=== PATIENT | female | born 1960 | race Two or more races ===

== ENCOUNTER 2023-08-08 15:49 | Inpatient (IN) | payer OTHER ==
[~2023-08-08] VITALS: Ht 160 cm; Wt 63.5 kg
[2023-08-08] MEDS ORDERED: HYDROMORPHONE 1 MG/1 ML DISP.SYRIN ONE (16:16)
[2023-08-08] MEDS ORDERED: ONDANSETRON 4 MG/2 ML VIAL ONE (16:16)
[2023-08-08] MEDS: HYDROMORPHONE 1 MG/1 ML DISP.SYRIN IV ONE (16:22)
[2023-08-08] MEDS: ONDANSETRON 4 MG/2 ML VIAL IV ONE (16:22)
[2023-08-08 16:29] LABS: BASOPHILS % (AUTO) 0.8 % (0.0-2.0); DIFFERENTIAL COMMENT 0; EOSINOPHILS # (AUTO) 0.1 K/uL (0.0-0.7); EOSINOPHILS % (AUTO) 7.7 % (0.0-7.0); HEMATOCRIT 29.2 % (31.2-41.9); HEMOGLOBIN 9.8 g/dL (10.9-14.3); LYMPHOCYTES # (AUTO) 0.5 K/uL (0.8-4.8); LYMPHOCYTES % (AUTO) 35.8 % (20.5-51.5); MEAN CORPUSCULAR HEMOGLOBIN 28.6 uug (24.7-32.8); MEAN CORPUSCULAR HGB CONC 34 g/dL (32.3-35.6); MEAN CORPUSCULAR VOLUME 85.3 fL (75.5-95.3); MONOCYTES # (AUTO) 0.4 K/uL (0.1-1.30); MONOCYTES % (AUTO) 30.1 % (0.0-11.0); NEUTROPHILS # (AUTO) 0.4 K/uL (1.8-8.9); NEUTROPHILS % (AUTO) 25.6 % (38.5-71.5); PLATELET COUNT (AUTO) 354 K/uL (179-408); RED BLOOD CELL COUNT(AUTO) 3.42 MIL/uL (3.63-4.92); RED CELL DISTRIBUTION WIDTH 16.7 % (12.3-17.7)
[2023-08-08 17:00] LABS: WHITE BLOOD COUNT (AUTO) 1.5 K/uL (3.8-11.8)
[2023-08-08 17:02] LABS: CARBON DIOXIDE 29 mmol/L (21-32); CHLORIDE 100 mmol/L (98-107); CREATININE 1.3 mg/dL (0.6-1.3); GLUCOSE 143 mg/dL (74-106); POTASSIUM 3.8 mmol/L (3.5-5.1); SODIUM SERUM 138 mmol/L (136-145); UREA NITROGEN, BLOOD 7 mg/dL (7-18)
[2023-08-08 17:08] LABS: BASOPHILS % (MANUAL) 0 % (0-2); EOSINOPHILS % (MANUAL) 5 % (0-8); LYMPHOCYTES % (MANUAL) 30 % (20-40); MONOCYTES % (MANUAL) 35 % (2-10); NEUTROPHILS % (MANUAL) 30 % (42-75)
[2023-08-08 17:15] LABS: ALANINE AMINOTRANSFERASE 20 U/L (14-59); ALBUMIN 2.4 g/dL (3.4-5.0); ALKALINE PHOSPHATASE 128 U/L (50-136); ASPARTATE AMINOTRANSFERASE 12 U/L (15-37); BILIRUBIN,TOTAL 0.2 mg/dL (0.2-1.0); NT-PRO BNP 194 pg/mL (0-125); TOTAL PROTEIN, SERUM 7.3 g/dL (6.4-8.2)
[2023-08-08 17:16] LABS: BILIRUBIN,DIRECT < 0.1 mg/dL (0.0-0.2)
[2023-08-08] MEDS: IV NS 1000 ML 1,000 ML IV ONE (19:15)
[2023-08-08] MEDS ORDERED: GUAIFENESIN/DEXTROMETHORPHAN 5 ML UDC ONE (21:05)
[2023-08-08] MEDS: GUAIFENESIN/DEXTROMETHORPHAN 5 ML UDC PO ONE (21:06)
[2023-08-08] MEDS ORDERED: IV NORMAL SALINE 250 ML IV ONE (21:18)
[2023-08-08] MEDS ORDERED: SWABABLE VALVE TRANSFER SET EA MC ONE (21:18)
[2023-08-08] MEDS ORDERED: IOHEXOL 350 100 ML INFUS..BTL ONE (21:20)
[2023-08-08] MEDS ORDERED: ONDANSETRON 4 MG/2 ML VIAL IV PRN (21:30)
[2023-08-08] MEDS ORDERED: ALBUTEROL SULFATE 2.5 MG/ 0.5 ML NEBU ONE (21:42)
[2023-08-08 21:47] VITALS: O2SAT 98
[2023-08-08] MEDS: ALBUTEROL SULFATE 2.5 MG/ 0.5 ML NEBU NEB PRN (21:49)
[2023-08-08 22:02] VITALS: O2SAT 98
[2023-08-08] MEDS ORDERED: MELO-105 PO (22:15)
[2023-08-08] MEDS ORDERED: LOSA50TA39 PO (22:15)
[2023-08-08] MEDS ORDERED: APIX5TAB PO (22:15)
[2023-08-08] MEDS ORDERED: LOPE2TAB25 PO (22:15)
[2023-08-08] MEDS ORDERED: PROC-11 PO (22:15)
[2023-08-08] MEDS ORDERED: OXYC-128 PO (22:15)
[2023-08-08] MEDS ORDERED: LORA0.5T48 PO (22:15)
[2023-08-08] MEDS ORDERED: METO-356 PO (22:15)
[2023-08-08] MEDS ORDERED: POTA10CA43 PO (22:15)
[2023-08-08] MEDS ORDERED: FAMO40TA7 PO (22:15)
[2023-08-08] MEDS ORDERED: LEVO75TA7 PO (22:15)
[2023-08-08] MEDS ORDERED: HYDROCODONE/APAP 5-325MG TABLET ONE (22:29)
[2023-08-08] MEDS: HYDROCODONE/APAP 5-325MG TABLET PO PRN (22:30)
[2023-08-09 01:44] VITALS: BP 124/77; TEMP 98; O2SAT 94
[2023-08-09 04:55] VITALS: BP 129/80; TEMP 98.1; O2SAT 95
[2023-08-09 07:35] LABS: BASOPHILS % (AUTO) 0.7 % (0.0-2.0); EOSINOPHILS # (AUTO) 0.1 K/uL (0.0-0.7); EOSINOPHILS % (AUTO) 5.5 % (0.0-7.0); HEMATOCRIT 24.1 % (31.2-41.9); HEMOGLOBIN 8.2 g/dL (10.9-14.3); LYMPHOCYTES # (AUTO) 0.9 K/uL (0.8-4.8); MEAN CORPUSCULAR HEMOGLOBIN 28.8 uug (24.7-32.8); MEAN CORPUSCULAR HGB CONC 34 g/dL (32.3-35.6); MEAN CORPUSCULAR VOLUME 84.5 fL (75.5-95.3); MONOCYTES # (AUTO) 0.7 K/uL (0.1-1.30); MONOCYTES % (AUTO) 34.8 % (0.0-11.0); NEUTROPHILS # (AUTO) 0.3 K/uL (1.8-8.9); PLATELET COUNT (AUTO) 299 K/uL (179-408); RED BLOOD CELL COUNT(AUTO) 2.85 MIL/uL (3.63-4.92); RED CELL DISTRIBUTION WIDTH 16.7 % (12.3-17.7)
[2023-08-09 07:40] LABS: DIFFERENTIAL COMMENT 1
[2023-08-09 08:00] VITALS: BP 112/57; TEMP 97.6; O2SAT 97
[2023-08-09 08:07] LABS: THYROID STIMULATING HORMONE 4.014 mIU/mL (0.358-3.740)
[2023-08-09 08:13] LABS: ALBUMIN 1.9 g/dL (3.4-5.0); BILIRUBIN,TOTAL 0.2 mg/dL (0.2-1.0); CALCIUM 8.4 mg/dL (8.5-10.1); CREATININE 1.1 mg/dL (0.6-1.3); MAGNESIUM 1.8 mg/dL (1.8-2.4); PHOSPHOROUS 3.8 mg/dL (2.5-4.9); POTASSIUM 3.4 mmol/L (3.5-5.1); TOTAL PROTEIN, SERUM 6.1 g/dL (6.4-8.2)
[2023-08-09] MEDS: PANTOPRAZOLE SODIUM 40 MG TABLET.DR PO SCH (08:40)
[2023-08-09] MEDS ORDERED: LORAZEPAM 0.5 MG TABLET PO PRN (10:30)
[2023-08-09] MEDS: POTASSIUM CHLORIDE 10 MEQ TAB.PRT.SR PO SCH (11:28)
[2023-08-09] MEDS: METOPROLOL SUCCINATE XL 25 MG TAB.SR.24H PO SCH (11:28)
[2023-08-09] MEDS: LEVOTHYROXINE SODIUM 75 MCG TABLET PO SCH (11:28)
[2023-08-09] MEDS: FUROSEMIDE 40 MG/4 ML VIAL IV SCH (11:28)
[2023-08-09] MEDS: LIDOCAINE 5% PATCH TD SCH (11:40)
[2023-08-09 12:00] VITALS: BP 102/56; TEMP 97.8; O2SAT 97
[2023-08-09] MEDS: GUAIFENESIN/CODEINE 5 ML LIQUID UDC PO PRN (14:42)
[2023-08-09 16:00] VITALS: BP 116/78; TEMP 97.6; O2SAT 98
[2023-08-09 16:16] LABS: ANISOCYTOSIS 1+; EOSINOPHILS % (MANUAL) 3 % (0-8); LYMPHOCYTES % (MANUAL) 51 % (20-40); MONOCYTES % (MANUAL) 27 % (2-10); NEUTROPHILS % (MANUAL) 19 % (42-75); PLATELET ESTIMATE ADEQUATE
[2023-08-09 16:17] LABS: OVALOCYTES 1+
[2023-08-09] MEDS: APIXABAN 5 MG TABLET PO SCH (16:25)
[2023-08-09 20:00] VITALS: BP 127/86; TEMP 99.7; O2SAT 92
[2023-08-09] MEDS: DOCUSATE SODIUM 100 MG CAPSULE PO SCH (20:54)
[2023-08-09] MEDS: ACETAMINOPHEN 325 MG TABLET PO PRN (20:55)
[2023-08-10 07:37] LABS: BASOPHILS % (AUTO) 0.6 % (0.0-2.0); EOSINOPHILS # (AUTO) 0.1 K/uL (0.0-0.7); LYMPHOCYTES # (AUTO) 0.9 K/uL (0.8-4.8); LYMPHOCYTES % (AUTO) 35.9 % (20.5-51.5); MEAN CORPUSCULAR HGB CONC 35 g/dL (32.3-35.6); MEAN CORPUSCULAR VOLUME 83.7 fL (75.5-95.3); MONOCYTES # (AUTO) 0.9 K/uL (0.1-1.30); MONOCYTES % (AUTO) 33.9 % (0.0-11.0); NEUTROPHILS # (AUTO) 0.6 K/uL (1.8-8.9); NEUTROPHILS % (AUTO) 24.6 % (38.5-71.5); PLATELET COUNT (AUTO) 420 K/uL (179-408); RED BLOOD CELL COUNT(AUTO) 3.11 MIL/uL (3.63-4.92); RED CELL DISTRIBUTION WIDTH 17.2 % (12.3-17.7); WHITE BLOOD COUNT (AUTO) 2.5 K/uL (3.8-11.8)
[2023-08-10 07:57] LABS: DIFFERENTIAL COMMENT 1
[2023-08-10 08:12] VITALS: BP 139/81; TEMP 99; O2SAT 91
[2023-08-10 08:22] LABS: CREATININE 1.2 mg/dL (0.6-1.3); MAGNESIUM 1.8 mg/dL (1.8-2.4); POTASSIUM 3.1 mmol/L (3.5-5.1)
[2023-08-10 08:30] LABS: CALCIUM 8.6 mg/dL (8.5-10.1); PHOSPHOROUS 4.4 mg/dL (2.5-4.9)
[2023-08-10] MEDS ORDERED: LOSARTAN POTASSIUM 50 MG TABLET PO SCH (09:00)
[2023-08-10] MEDS ORDERED: POTASSIUM CHLORIDE 20 MEQ TAB.PRT.SR PO ONE (12:00)
[2023-08-10 13:41] LABS: EOSINOPHILS % (MANUAL) 2 % (0-8); LYMPHOCYTES % (MANUAL) 44 % (20-40); MONOCYTES % (MANUAL) 27 % (2-10); NEUTROPHILS % (MANUAL) 27 % (42-75); PLATELET ESTIMATE INCREASED
[2023-08-10 13:42] LABS: ANISOCYTOSIS 1+; HYPOCHROMASIA 1+
[2023-08-10 13:43] LABS: OVALOCYTES 1+
== END 2023-08-10 12:10 | disposition home or self-care (01) | DRG 291 ==
LOC: ER 15:50 → TELE3 18:00
PROVIDERS: ADMIT Internal Medicine; ATTEND Internal Medicine
DX: I11.0 Hypertensive heart disease with heart failure (principal); E43 Unspecified severe protein-calorie malnutrition; I50.31 Acute diastolic (congestive) heart failure; N17.0 Acute kidney failure with tubular necrosis; C78.89 Secondary malignant neoplasm of other digestive organs; I31.39 Other pericardial effusion (noninflammatory); J98.11 Atelectasis; C79.51 Secondary malignant neoplasm of bone; K92.2 Gastrointestinal hemorrhage, unspecified; F41.9 Anxiety disorder, unspecified; F32.A Depression, unspecified; E03.9 Hypothyroidism, unspecified; Z86.718 Personal history of other venous thrombosis and embolism; Z79.01 Long term (current) use of anticoagulants; I48.0 Paroxysmal atrial fibrillation; C50.912 Malignant neoplasm of unspecified site of left female breast; Z17.0 Estrogen receptor positive status [ER+]; D72.819 Decreased white blood cell count, unspecified; M81.0 Age-related osteoporosis without current pathological fracture; R09.02 Hypoxemia; Z95.828 Presence of other vascular implants and grafts
CPT/HCPCS: 36415; 70030-TC; 71045; 71275; 83550; 83605; 83735; 84100; 84443; 84484; 85025; 85730; 87040; 93005; 93307; G0378; J1170; J1940; J2405; J7040; Q9967

== ENCOUNTER 2023-11-15 12:42 | Inpatient (IN) | payer OTHER ==
[~2023-11-15] VITALS: Ht 154.9 cm; Wt 63.5 kg
[2023-11-15 12:40] VITALS: O2SAT 100
[~2023-11-15 12:42] MED LIST: APIX5TAB PO; FAMO40TA7 PO; LEVO75TA7 PO; LOPE2TAB25 PO; LORA0.5T48 PO; LOSA50TA39 PO; METO-356 PO; OXYC-128 PO; POTA10CA43 PO; PROC-11 PO
[2023-11-15] MEDS: ALBUTEROL SULFATE 2.5 MG/3 ML NEBU NEB ONE (12:45)
[2023-11-15] MEDS: IV NORMAL SALINE 1000 ML BAG IV ONE ×2 (13:06→15:20)
[2023-11-15] MEDS ORDERED: methylPREDNISolone SOD SUCC 125 MG/2 ML VIAL ONE (13:06)
[2023-11-15] MEDS ORDERED: ALPR0.255 PO (13:06)
[2023-11-15] MEDS: methylPREDNISolone SOD SUCC 125 MG/2 ML VIAL IV ONE (13:06)
[2023-11-15 13:08] LABS: BASOPHILS # (AUTO) 0.1 K/UL (0.0-0.2); BASOPHILS % (AUTO) 0.4 % (0.0-2.0); EOSINOPHILS % (AUTO) 0.1 % (0.0-7.0); HEMATOCRIT 30.4 % (31.2-41.9); HEMOGLOBIN 9.4 g/dL (10.9-14.3); LYMPHOCYTES # (AUTO) 3.9 K/uL (0.8-4.8); LYMPHOCYTES % (AUTO) 16.4 % (20.5-51.5); MEAN CORPUSCULAR HEMOGLOBIN 28.2 uug (24.7-32.8); MEAN CORPUSCULAR HGB CONC 31 g/dL (32.3-35.6); MEAN CORPUSCULAR VOLUME 91.6 fL (75.5-95.3); MONOCYTES # (AUTO) 0.2 K/uL (0.1-1.30); NEUTROPHILS # (AUTO) 19.4 K/uL (1.8-8.9); NEUTROPHILS % (AUTO) 82.1 % (38.5-71.5); PLATELET COUNT (AUTO) 317 K/uL (179-408); RED BLOOD CELL COUNT(AUTO) 3.32 MIL/uL (3.63-4.92); RED CELL DISTRIBUTION WIDTH 19.6 % (12.3-17.7); WHITE BLOOD COUNT (AUTO) 23.6 K/uL (3.8-11.8)
[2023-11-15] MEDS ORDERED: CYAN500T9 PO (13:10)
[2023-11-15] MEDS ORDERED: BENZ-13 PO (13:10)
[2023-11-15] MEDS ORDERED: GUAI118S13 PO (13:11)
[2023-11-15 13:13] LABS: ABG BASE EXCESS -2.8 mmol/L (-2.0-3.0); ABG PCO2 44.2 mmHg (32.0-45.0); ABG PH 7.335 (7.350-7.450); ABG PO2 135.9 mmHg (83.0-108.0); ABG SITE LEFT RADIAL; ABG TOTAL HEMOGLOBIN 10.6 G/dL (12.0-16.0); AaDO2 98.5 mmHg; COHb 0.3 % (0.5-1.5); MetHb 0.1 % (0.0-1.5); O2Hb 97.9 % (94.0-98.0)
[2023-11-15] MEDS ORDERED: HYOS-27 PO (13:13)
[2023-11-15] MEDS ORDERED: LACT10SO58 PO (13:14)
[2023-11-15] MEDS ORDERED: LIDO30AD10 TOP (13:15)
[2023-11-15] MEDS ORDERED: LIDO30CR TOP (13:15)
[2023-11-15 13:17] LABS: CALCIUM 8.6 mg/dL (8.5-10.1); CARBON DIOXIDE 27 mmol/L (21-32); CHLORIDE 104 mmol/L (98-107); GLUCOSE 197 mg/dL (74-106); POTASSIUM 3.5 mmol/L (3.5-5.1); SODIUM SERUM 142 mmol/L (136-145); UREA NITROGEN, BLOOD 4 mg/dL (7-18)
[2023-11-15] MEDS ORDERED: MELO-105 PO (13:17)
[2023-11-15] MEDS ORDERED: METO-295 PO (13:18)
[2023-11-15 13:19] LABS: AMMONIA 32 umol/L (11-32)
[2023-11-15 13:20] VITALS: O2SAT 98
[2023-11-15 13:22] LABS: DIFFERENTIAL COMMENT 1
[2023-11-15] MEDS ORDERED: ONDA8TAB13 PO (13:22)
[2023-11-15] MEDS ORDERED: POTA-88 PO (13:25)
[2023-11-15] MEDS ORDERED: ROSU5TAB PO (13:25)
[2023-11-15] MEDS ORDERED: PROC10TA13 PO (13:25)
[2023-11-15] MEDS ORDERED: ALBUTEROL SULFATE 2.5 MG/3 ML NEBU ONE (13:28)
[2023-11-15 13:31] LABS: ALANINE AMINOTRANSFERASE 8 U/L (14-59); ALKALINE PHOSPHATASE 234 U/L (50-136); ASPARTATE AMINOTRANSFERASE 19 U/L (15-37); BILIRUBIN,DIRECT 0.1 mg/dL (0.0-0.2); BILIRUBIN,TOTAL 0.3 mg/dL (0.2-1.0); THYROID STIMULATING HORMONE 5.111 mIU/mL (0.358-3.740); TOTAL PROTEIN, SERUM 6.4 g/dL (6.4-8.2)
[2023-11-15 13:52] LABS: ACETAMINOPHEN < 2.0 ug/mL (10-30)
[2023-11-15 13:56] LABS: LACTIC ACID 3.3 mmol/L (0.4-2.0)
[2023-11-15 14:04] LABS: *BILIRUBIN,URIN NEGATIVE (NEGATIVE); *BLOOD, URINE NEGATIVE (NEGATIVE); *CLARITY,URINE CLEAR (CLEAR); *COLOR,URINE YELLOW (YELLOW); *KETONES,URINE NEGATIVE (NEGATIVE); *PROTEIN,URINE 1+ (NEGATIVE); *UROBILINOGEN,URINE 0.2 E.U./dl (NORMAL); LEUKOCYTE ESTERASE ,URINE NEGATIVE (NEGATIVE); NITRITE, URINE NEGATIVE (NEGATIVE); PH,URINE 7.5 (5.0-8.0); UGLUCOSE NEGATIVE (NEGATIVE)
[2023-11-15 14:13] LABS: BACTERIA,URINE FEW /HPF (NONE SEEN); RBC,URINE 0-3 /HPF (0-3); SQUAMOUS EPITHELIAL CELL,UR FEW /HPF (NONE SEEN); WBC,URINE 0-3 /HPF (0-3)
[2023-11-15 14:15] LABS: *AMPHETAMINE, URINE NEGATIVE (NEGATIVE); *BARBITURATE, URINE NEGATIVE (NEGATIVE); *BENZODIAZEPINE, URINE NEGATIVE (NEGATIVE); *CANNABINOID, URINE NEGATIVE (NEGATIVE); *COCCAINE, URINE NEGATIVE (NEGATIVE); *OPIATE, URINE POSITIVE (NEGATIVE); *PHENCYCLIDINE SCREEN,URINE NEGATIVE (NEGATIVE); FENTANYL, URINE NEGATIVE (NEGATIVE)
[2023-11-15 14:41] LABS: ETHANOL < 3 MG/DL (0-10)
[2023-11-15] MEDS ORDERED: CEFEPIME HCL 1 G VIAL ONE (15:08)
[2023-11-15] MEDS: CEFEPIME HCL 1 G in IV DEXTROSE 5% 50 ML IV ONE (15:20)
[2023-11-15] MEDS ORDERED: IV NORMAL SALINE 250 ML IV ONE (16:09)
[2023-11-15] MEDS ORDERED: IOHEXOL 300MG/ML 100 ML INFUS..BTL ONE (16:09)
[2023-11-15] MEDS ORDERED: SWABABLE VALVE TRANSFER SET EA MC ONE (16:09)
[2023-11-15] MEDS ORDERED: VANCOMYCIN IV 200 ML ONE (16:11)
[2023-11-15] MEDS: VANCOMYCIN IV 1,000 MG in IV DEXTROSE 5% 250 ML IV ONE (16:25)
[2023-11-15 18:37] VITALS: BP 109/74; TEMP 98.2
[2023-11-15] MEDS ORDERED: METOCLOPRAMIDE HCL 10 MG TABLET PO SCH (19:00)
[2023-11-15] MEDS ORDERED: ONDANSETRON 4 MG/2 ML VIAL IV PRN (19:15)
[2023-11-15] MEDS ORDERED: MAGNESIUM HYDROXIDE 30 ML LIQUID UDC PO PRN (19:15)
[2023-11-15] MEDS ORDERED: LEVALBUTEROL HCL NEB 0.63 MG/3 ML NEBU NEB PRN (19:15)
[2023-11-15 20:00] VITALS: BP 114/68; TEMP 98.7
[2023-11-15] MEDS ORDERED: PIPERACILLIN SODIUM/TAZOBACTAM 3.375 G in IV DEXTROSE 5% 50 ML IV SCH (22:00)
[2023-11-15] MEDS: ALPRAZOLAM 0.25 MG TABLET PO PRN (22:18)
[2023-11-15] MEDS: PIPERACILLIN SODIUM/TAZOBACTAM 3.375 G in IV DEXTROSE 5% 50 ML IV SCH (22:19)
[2023-11-16] VITALS (15 sets, daily range): BP systolic 100–151; BP diastolic 58–99; TEMP 98.2–98.5; O2SAT 94–99
[2023-11-16] MEDS: ACETAMINOPHEN 325 MG TABLET PO PRN (03:26)
[2023-11-16 05:17] LABS: BASOPHILS # (AUTO) 0.1 K/UL (0.0-0.2); BASOPHILS % (AUTO) 0.4 % (0.0-2.0); HEMATOCRIT 26.1 % (31.2-41.9); HEMOGLOBIN 8.2 g/dL (10.9-14.3); LYMPHOCYTES # (AUTO) 0.5 K/uL (0.8-4.8); LYMPHOCYTES % (AUTO) 2.3 % (20.5-51.5); MEAN CORPUSCULAR HEMOGLOBIN 28.5 uug (24.7-32.8); MEAN CORPUSCULAR HGB CONC 32 g/dL (32.3-35.6); MEAN CORPUSCULAR VOLUME 90.4 fL (75.5-95.3); MONOCYTES # (AUTO) 0.3 K/uL (0.1-1.30); MONOCYTES % (AUTO) 1.2 % (0.0-11.0); NEUTROPHILS % (AUTO) 96.1 % (38.5-71.5); PLATELET COUNT (AUTO) 268 K/uL (179-408); RED BLOOD CELL COUNT(AUTO) 2.89 MIL/uL (3.63-4.92); RED CELL DISTRIBUTION WIDTH 19.1 % (12.3-17.7)
[2023-11-16 05:37] LABS: DIFFERENTIAL COMMENT 1
[2023-11-16 05:42] LABS: BILIRUBIN,TOTAL 0.3 mg/dL (0.2-1.0); CALCIUM 8.6 mg/dL (8.5-10.1); CREATININE 0.8 mg/dL (0.6-1.3); MAGNESIUM 1.5 mg/dL (1.8-2.4); TOTAL PROTEIN, SERUM 6.5 g/dL (6.4-8.2)
[2023-11-16] MEDS: PANTOPRAZOLE SODIUM 40 MG TABLET.DR PO SCH (07:40)
[2023-11-16] MEDS: OXYCODONE/APAP 5-325 MG TABLET PO PRN (08:06)
[2023-11-16] MEDS: POTASSIUM CHLORIDE 10 MEQ TAB.PRT.SR PO SCH (08:21)
[2023-11-16] MEDS: APIXABAN 5 MG TABLET PO SCH (08:22)
[2023-11-16] MEDS: LIDOCAINE 5% PATCH TD SCH (08:23)
[2023-11-16] MEDS: FUROSEMIDE 20 MG/2 ML VIAL IV SCH (08:23)
[2023-11-16] MEDS: METOPROLOL SUCCINATE XL 25 MG TAB.SR.24H PO SCH (08:23)
[2023-11-16] MEDS: LEVOTHYROXINE SODIUM 75 MCG TABLET PO SCH (08:31)
[2023-11-16] MEDS ORDERED: METOCLOPRAMIDE HCL 10 MG TABLET PO PRN (11:00)
[2023-11-16] MEDS: VANCOMYCIN IV 1,000 MG in IV DEXTROSE 5% 250 ML IV SCH (12:14)
[2023-11-16] MEDS: PIPERACILLIN SODIUM/TAZOBACTAM 3.375 G in IV DEXTROSE 5% 100 ML IV SCH (14:17)
[2023-11-16] MEDS: MAGNESIUM OXIDE 400 MG TABLET PO ONE (16:42)
[2023-11-17] VITALS (11 sets, daily range): BP systolic 101–148; BP diastolic 70–100; TEMP 98–98.5; O2SAT 89–100
[2023-11-17 05:14] LABS: BASOPHILS % (AUTO) 0.1 % (0.0-2.0); HEMATOCRIT 24.4 % (31.2-41.9); HEMOGLOBIN 7.7 g/dL (10.9-14.3); LYMPHOCYTES # (AUTO) 0.9 K/uL (0.8-4.8); LYMPHOCYTES % (AUTO) 4.9 % (20.5-51.5); MEAN CORPUSCULAR HEMOGLOBIN 28.8 uug (24.7-32.8); MEAN CORPUSCULAR HGB CONC 32 g/dL (32.3-35.6); MONOCYTES # (AUTO) 0.9 K/uL (0.1-1.30); MONOCYTES % (AUTO) 4.5 % (0.0-11.0); NEUTROPHILS # (AUTO) 17.5 K/uL (1.8-8.9); NEUTROPHILS % (AUTO) 90.5 % (38.5-71.5); PLATELET COUNT (AUTO) 275 K/uL (179-408); RED BLOOD CELL COUNT(AUTO) 2.68 MIL/uL (3.63-4.92); RED CELL DISTRIBUTION WIDTH 19.4 % (12.3-17.7); WHITE BLOOD COUNT (AUTO) 19.3 K/uL (3.8-11.8)
[2023-11-17 05:34] LABS: CALCIUM 8.6 mg/dL (8.5-10.1); CREATININE 0.9 mg/dL (0.6-1.3); POTASSIUM 3.3 mmol/L (3.5-5.1)
[2023-11-17 05:39] LABS: DIFFERENTIAL COMMENT 1
[2023-11-17 06:02] LABS: *RHEUMATOID FACTOR SCREEN NEGATIVE (NEGATIVE)
[2023-11-17 06:05] LABS: C-REACTIVE PROTEIN 3.94 mg/dL (0.00-0.30)
[2023-11-17] MEDS ORDERED: LEVOTHYROXINE SODIUM 75 MCG TABLET PO SCH ×2 (07:00)
[2023-11-17] MEDS ORDERED: POTASSIUM CHLORIDE 10 MEQ TAB.PRT.SR PO ONE (11:30)
[2023-11-18 11:10] LABS: *ANTI-SCLERODERMA-70 AB <0.2 AI (0.0-0.9); *RNP ANTIBODIES <0.2 AI (0.0-0.9); *SJOGREN'S ANTI-SS-A 0.2 AI (0.0-0.9); *SJOGREN'S ANTI-SS-B <0.2 AI (0.0-0.9); *SMITH ANTIBODIES 0.2 AI (0.0-0.9); ANTI-DNA(DS) AB, QN <1 IU/mL (0-9); ANTI-NUCLEAR AB DIRECT Negative (Negative)
[2023-11-18 15:07] LABS: FREE KAPPA LT CHAINS SERUM 22.4 mg/L (3.3-19.4); FREE KAPPA LT CHAINS SERUM 23.4 mg/L (3.3-19.4); FREE LAMBDA LT CHAIN SERUM 22.3 mg/L (5.7-26.3); FREE LAMBDA LT CHAIN SERUM 23.3 mg/L (5.7-26.3)
[2023-11-19 03:10] LABS: *IMMUNOGLOBULIN G, SERUM 1208 mg/dL (586-1602); IMMUNOGLOBULIN A, SERUM 278 mg/dL (87-352); IMMUNOGLOBULIN M, SERUM 24 mg/dL (26-217)
[2023-11-19 06:06] LABS: FOLATE (FOLIC ACID), SERUM 12.2 ng/mL (>3.0)
[2023-11-19 08:10] LABS: CANCER ANTIGEN 15-3 29.7 U/mL (0.0-25.0)
[2023-11-19 09:06] LABS: CARCINOEMBRYONIC AG (CEA) 1.9 ng/mL (0.0-4.7)
[2023-11-22 07:06] LABS: A/G RATIO 0.6 (0.7-1.7); ALBUMIN 2.1 g/dL (2.9-4.4); ALPHA-1-GLOBULIN 0.4 g/dL (0.0-0.4); ALPHA-2-GLOBULIN 1.1 g/dL (0.4-1.0); BETA GLOBULIN 1.2 g/dL (0.7-1.3); GAMMA GLOBULIN 0.9 g/dL (0.4-1.8); GLOBULIN, TOTAL 3.6 g/dL (2.2-3.9); M-SPIKE Not Observed g/dL (Not Observed)
== END 2023-11-17 13:55 | disposition home or self-care (01) | DRG 640 ==
LOC: ER 12:42 → CCU 17:52
PROVIDERS: ADMIT Internal Medicine; ATTEND Internal Medicine
DX: E87.70 Fluid overload, unspecified (principal); D61.810 Antineoplastic chemotherapy induced pancytopenia; E43 Unspecified severe protein-calorie malnutrition; J96.21 Acute and chronic respiratory failure with hypoxia; C79.51 Secondary malignant neoplasm of bone; C16.9 Malignant neoplasm of stomach, unspecified; J90 Pleural effusion, not elsewhere classified; D68.9 Coagulation defect, unspecified; E87.20 Acidosis, unspecified; Z79.01 Long term (current) use of anticoagulants; Z85.3 Personal history of malignant neoplasm of breast; Z92.3 Personal history of irradiation; E03.9 Hypothyroidism, unspecified; E55.9 Vitamin D deficiency, unspecified; E78.5 Hyperlipidemia, unspecified; F32.A Depression, unspecified; F41.9 Anxiety disorder, unspecified; Z86.718 Personal history of other venous thrombosis and embolism; Z20.822 Contact with and (suspected) exposure to COVID-19; Z68.26 Body mass index [BMI] 26.0-26.9, adult; R55 Syncope and collapse; T45.1X5A Adverse effect of antineoplastic and immunosuppressive drugs, initial encounter; Y92.009 Unspecified place in unspecified non-institutional (private) residence as the place of occurrence of the external cause; R19.5 Other fecal abnormalities; I11.9 Hypertensive heart disease without heart failure
CPT/HCPCS: 36415; 36600; 71045; 71275; 82378; 82746; 82784; 82803; 83550; 83605; 83735; 84100; 84155; 84165; 84443; 84484; 85025; 85730; 86038; 86140; 86300; 86334; 86430; 87040; 93005; A4606; A4663; C1758; G0378; G0480; J0692; J1940; J2543; J2919; J3370; J7040; J7050; Q9967